=== PATIENT | female | born 2000 | race Caucasian/White ===

== ENCOUNTER 2020-02-28 15:56 | Emergency (ER) | payer MEDICAID ==
[~2020-02-28] VITALS: Ht 162.6 cm; Wt 80.0 kg
[2020-02-28] MEDS ORDERED: DEXAMETHASONE 4 MG TABLET PO ONE (16:30)
[2020-02-28] MEDS ORDERED: PLEASE ENTER ALLERGIES MC SCH (16:30)
[2020-02-28] MEDS ORDERED: DEXAMETHASONE 4 MG TABLET ONE (16:30)
[2020-02-28 17:17] VITALS: BP 119/59
--- NOTE | 2020-02-28 17:17 | NUR ---
PT RESTING IN [facility]. UP FOR RECHECK
== END 2020-02-28 17:46 | disposition home or self-care (01) ==
LOC: ED 17:13
DX: J02.8 Acute pharyngitis due to other specified organisms (principal); R05 Cough; R50.9 Fever, unspecified; B97.89 Other viral agents as the cause of diseases classified elsewhere
CPT/HCPCS: 71045; 87081; 87147; 87880; 99284

== ENCOUNTER 2020-04-15 07:26 | Emergency (ER) | payer MEDICAID ==
[~2020-04-15] VITALS: Ht 162.6 cm; Wt 84.6 kg
[2020-04-15 07:28] VITALS: BP 101/46
--- NOTE | 2020-04-15 07:34 | NUR ---
CARE ASSUMED PT CHANGING INTO GOWN
[2020-04-15] MEDS ORDERED: DEXAMETHASONE 4 MG TABLET ONE ×2 (07:59→08:03)
[2020-04-15] MEDS ORDERED: DEXAMETHASONE 4 MG TABLET PO ONE (08:00)
== END 2020-04-15 08:30 | disposition home or self-care (01) ==
LOC: ED 08:00
DX: J02.0 Streptococcal pharyngitis (principal); J45.909 Unspecified asthma, uncomplicated
CPT/HCPCS: 99283